=== PATIENT | male | born 1960 | race Caucasian/White ===

== ENCOUNTER → 2018-08-03 | Day surgery (SDC) | payer BC ==
[~2018-08-03] MED LIST: AMLO1CAP12 PO; ATEN50TA PO; CRESTOR10 MG PO; IV RINGERS,LACTATED 1000ML 1,000 ML IV SCH; PROPOFOL 60 ML IV ONE; SEVOFLURANE 31 TO 60 MINUTES. IH ONE; SITA100T PO
--- NOTE | 2018-08-03 12:20 | NUR ---
PT STATES HE FEELS BETTER BUT STIL IN ALOT OF PAIN. PT TAKEN TO CT SCAN BY CART.
[2018-08-03 12:33] VITALS: BP 203/91
--- NOTE | 2018-08-03 12:57 | RAD ---
PQRS Compliance Statement: One or more of the following individualized dose reduction techniques were utilized for this examination: 1. Automated exposure control 2. Adjustment of the mA and/or kV according to patient size 3. Use of iterative reconstruction technique CT ABDOMEN PELVIS WO CONTRAST Clinical Indication: BLEEDING AND FREE AIR S/P COLONOSCOPY TODAY Comparison: None. Technique: Helical CT imaging of the abdomen and pelvis is performed without IV or oral contrast. Findings: Evaluation of solid organs and bowel is limited without oral and IV contrast, decreasing sensitivity for detection of pathology. The lung bases are clear. Cardiac size normal. Coronary artery disease. There is no intraperitoneal free air. Cholelithiasis. The liver, spleen, pancreas, adrenal glands, and abdominal aorta caliber are normal. There is no right hydronephrosis. Punctate nonobstructing calculus lower pole right kidney. There is no left hydronephrosis. There is a small left renal cyst. There is also a 9 cm left renal cyst. Atherosclerotic abdominal aorta. Stomach unremarkable. There is fluid-filled but nondilated small bowel. There is no colon wall thickening. The appendix is normal. No abdominal adenopathy or free fluid. Urinary bladder is normal. Prostate is mildly enlarged. No pelvic free fluid. There is degenerative spondylosis of L5/S1. IMPRESSION: 1. No acute abdominal or pelvic abnormality. No intraperitoneal free air or free fluid. 2. Prostate is mildly enlarged. 3. Large left renal cyst. Punctate nonobstructing right renal calculus. Findings discussed with SHANTELLE DURÁN at 08/03/2018 12:50 PM. FOR INTERNAL CODING PURPOSES Critical result: RESULT CODE: (C) Electronically signed by: Monty Funez MD (08/03/2018 12:52 PM) [id number]
--- NOTE | 2018-08-04 17:10 | PATHOLOGY ---
[facility] Accession Number: [id number] . 01 Material submitted: . PART A: DESCENDING COLON POLYP PART B: SIGMOID POLYP PART C: RECTAL POLYP . 01 Clinical history: . Colorectal screening . 02 Diagnosis: A. Colon biopsies, descending colon polyp: - Tubular adenoma. . B. Colon biopsy, sigmoid polyp: - Tubular adenoma. . C. Colorectal biopsy, rectal polyp: - Consistent with hyperplastic polyp/prominent mucosal fold. LBQ/08/04/2018 . 02 Comment: There is no high grade dysplasia or evidence of malignancy. (JPM/db; 08/04/2018) . 02 Electronically signed: . Kj Leblanc MD, Pathologist NPI- [id number] . 01 Gross description: . A. The specimen is received in formalin, labeled "Brinkmeyer, Patric, descending colon polyp", are two gilbert to pink tissues measuring 0.5 cm and 0.3 cm in greatest dimension, entirely submitted in A1. . B. The specimen is received in formalin, labeled "Brinkmeyer, Patric, sigmoid polyp", is a gilbert-brown, rubbery sessile polyp measuring 0.7 x 0.6 x 0.3 cm, inked black, bisected and entirely submitted in B1. . C. The specimen is received in formalin, labeled "Brinkmeyer, Patric, rectal polyp", is a gilbert-brown, rubbery sessile polyp measuring 0.6 x 0.3 x 0.2 cm, inked black, bisected and entirely submitted in C1. ([facility]; 08/03/2018) SHS/SHS . 02 Pathologist provided ICD-10: D12.4, D12.5, K62.1 . 02 CPT . 946013, [id number], [id number] Specimen Comment: A courtesy copy of this report has been sent to Specimen Comment: [phone], . Specimen Comment: Report sent to / DR FINLEY Specimen Comment: A duplicate report has been generated due to demographic updates. Performed at: 01 [facility] [address], [place] [id number] MD Brooks Patrick MD Phone: [phone] Performed at: 02 [facility] [address] [place], [place] [id number] MD Kj Leblanc MD Phone: [phone]
== END | disposition home or self-care (01) ==
LOC: SURG 09:24
PROVIDERS: ATTEND Internal Medicine
DX: D12.4 Benign neoplasm of descending colon (principal); D12.5 Benign neoplasm of sigmoid colon; K62.1 Rectal polyp; I10 Essential (primary) hypertension; E78.5 Hyperlipidemia, unspecified; E11.9 Type 2 diabetes mellitus without complications; Z72.0 Tobacco use; N40.0 Benign prostatic hyperplasia without lower urinary tract symptoms; N20.0 Calculus of kidney; N28.1 Cyst of kidney, acquired; M47.897 Other spondylosis, lumbosacral region; I25.10 Atherosclerotic heart disease of native coronary artery without angina pectoris; Z79.899 Other long term (current) drug therapy; Z79.84 Long term (current) use of oral hypoglycemic drugs
CPT/HCPCS: 45380; 45385; 74176; 88305; J2704